=== PATIENT | male | born 1940 | race Caucasian/White ===

== ENCOUNTER 2017-09-29 11:01 | Emergency (ER) | payer OTHER ==
[2017-09-29 11:10] VITALS: TEMP 97.9; O2SAT 95
--- NOTE | 2017-09-29 11:37 | EDPHY ---
H & P Stated Complaint: left knee injury 09/28/17 while skiing. - Personal History Current Tetanus Diphtheria and Acellular Pertussis (TDAP): Yes - Medical/Surgical History Hx Asthma: No Hx Chronic Respiratory Disease: No Hx Diabetes: No Hx Cardiac Disease: No Hx Renal Disease: No Hx Cirrhosis: No Hx Alcoholism: No Hx HIV/AIDS: No Hx Splenectomy or Spleen Trauma: No Other PMH: TIA?. HTN - Social History Smoking Status: Never smoked Time Seen by Provider: 09/29/17 11:24 HPI/ROS: CHIEF COMPLAINT: Left medial knee pain post skiing HISTORY OF PRESENT ILLNESS: 77-year-old male visiting from [place] was skiing yesterday when the he caught an edge and felt immediate left medial knee pain. Had to be evacuated via gizzard skin remover. He is able to ambulate and bear weight but woke with soft tissue swelling and pain to the medial aspect of the left knee. No direct trauma or fall. No proximal distal pain or injury. PRIMARY CARE PROVIDER:in [place] REVIEW OF SYSTEMS: A ten point review of systems was performed and is negative with the exception of the items mentioned in the HPI PHYSICAL EXAM (Prior to examination, patient consented to physical exam, hands were washed and my usual and customary physical exam procedures followed) 1) GENERAL: Well-developed, well-nourished, alert and oriented. Appears to be in no acute distress. 2) HEAD: Normocephalic 3) HEENT: Pupils equal, round, reactive to light bilaterally. 4) LUNGS: Breathing comfortably. 5) MUSCULOSKELETAL: Exam of the left knee shows soft tissue swelling, tenderness to palpation medial aspect. No gross instability. Proximally distally nontender. . Compartments are soft. 6) SKIN: Intact 7) VASCULAR: DP,PT pulses and cap refill present and brisk distally DIFFERENTIAL DIAGNOSIS: in no particular order including but not limited to fracture, sprain, compartment syndrome, septic arthritis, DVT MEDICAL DECISION MAKING Serial evaluations performed on patient. I discussed the limitations of x-ray in diagnosis of knee pain and injury. At this time I do not think that emergent MRI is currently indicated. However, I have recommended follow-up with Orthopedic surgery and provided this referral information. He declines knee immobilizer and crutches. Informed the patient that outpatient MRI may be indicated. He has been given copies of his x-rays and he will follow up with orthopedic surgeon in [place]. Care of patient under supervision of secondary supervising physician Dr Mirela Hay . (Bay Cain) Constitutional: Initial Vital Signs Temperature (C) 36.6 C 09/29/17 11:03 Heart Rate 90 09/29/17 11:03 Respiratory Rate 16 09/29/17 11:03 Blood Pressure 159/92 H 09/29/17 11:03 O2 Sat (%) 95 09/29/17 11:03 O2 Delivery Mode Room Air Allergies/Adverse Reactions: Penicillins Allergy (Verified 09/29/17 11:10) aspirin Allergy (Uncoded 09/29/17 11:10) Home Medications: Medication Instructions Recorded Plavix 09/29/17 Medical Decision Making - Diagnostics Imaging Results: Images reviewed by myself (Bay Cain) ED Course/Re-evaluation: The patient was evaluated and managed by the physician resident care assistant. I have reviewed this chart and I agree with the findings and plan of care as documented , as indicated by my signature. I am the secondary supervising physician. ( Mirela Hay) Departure - Departure Disposition: Home, Routine, Self-Care Clinical Impression: Left medial knee pain Condition: Good Instructions: Knee Sprain (ED) Additional Instructions: Return to the ER immediately if you experience discoloration, have worsening pain, numbness, tingling, or any other symptoms that concern you. If you received x-rays in the emergency department today, be advised, that ligamentous , tendon, muscular, and other non-bony injury cannot be fully ruled out. Try to keep your affected extremity elevated above the level of your chest, and keep cold packs on the affected area, for the next 48 hours. Referrals: Rodrigo Cotton MD [Medical Doctor] - 5-7 days, call for appt. (You may also follow up with orthopedic surgeon in [place]. Take your x-rays with you)
[2017-09-29 12:15] VITALS: BP 154/121; PULSE 91; RESP 18
== END 2017-09-29 12:15 | disposition home or self-care (01) ==
DX: S89.92XA Unspecified injury of left lower leg, initial encounter (principal); I10 Essential (primary) hypertension; V98.3XXA Accident to, on or involving ski lift, initial encounter; Y99.8 Other external cause status; Y93.23 Activity, snow (alpine) (downhill) skiing, snowboarding, sledding, tobogganing and snow tubing